=== PATIENT | female | born 1955 | race Caucasian/White ===

== ENCOUNTER → 2017-03-15 | Outpatient (CLI) | payer OTHER | LOC: BRMIMAGING 14:33 | PROVIDERS: ATTEND Family Medicine | DX: Z12.31 Encounter for screening mammogram for malignant neoplasm of breast (principal); Z85.3 Personal history of malignant neoplasm of breast | CPT/HCPCS: G0202-52 ==

== ENCOUNTER → 2018-03-28 | Outpatient (CLI) | payer OTHER | LOC: BRMIMAGING 12:59 | PROVIDERS: ATTEND Family Medicine | DX: Z12.31 Encounter for screening mammogram for malignant neoplasm of breast (principal); Z85.3 Personal history of malignant neoplasm of breast; Z90.12 Acquired absence of left breast and nipple ==